=== PATIENT | female | born 1995 | race Caucasian/White ===

== ENCOUNTER 2017-10-29 14:00 | Emergency (ER) | payer MEDICAID ==
[2017-10-29 14:03] VITALS: BMI 37.8
[2017-10-29 14:07] VITALS: TEMP 97.9
--- NOTE | 2017-10-29 14:32 | ED PDOC ---
Arrival/HPI - General Chief Complaint: Lower Extremity Problem/Injury Time Seen by Provider: 10/29/17 14:28 Historian: Patient - History of Present Illness Narrative History of Present Illness (Text): 10/29/17 14:29 This 21 yo female who denies pmh, presents to this ED c/o left lateral ankle pain x 2 years. Patient ankle pain worsen last 2-3 months. Patient admits today is the worse pain. Patient denies recent travel, surgery, weakness, paresthesias, or skin rash. Time/Duration: Other (noncontributory) Quality: Aching Context: Home Past Medical History - Provider Review Nursing Documentation Reviewed: Yes - Infectious Disease Hx of Infectious Diseases: None - Musculoskeletal/Rheumatological Other/Comment: Scoliosis - Psychiatric Hx Depression: No Hx Emotional Abuse: No Hx Physical Abuse: No Hx Substance Use: No - Past Surgical History Past Surgical History: No Previous - Surgical History Hx Tonsillectomy: Yes - Anesthesia Hx Anesthesia: Yes Hx Anesthesia Reactions: No Hx Malignant Hyperthermia: No - Suicidal Assessment Feels Threatened In Home Enviroment: No Family/Social History - Physician Review Nursing Documentation Reviewed: Yes Family/Social History: Other (noncontributory) Smoking Status: Never Smoked Hx Alcohol Use: No Hx Substance Use: No Hx Substance Use Treatment: No Allergies/Home Meds Allergies/Adverse Reactions: Allergies No Known Allergies Allergy (Verified 11/28/11 05:35) Review of Systems - Review of Systems Constitutional: Normal. absent: Fatigue, Weight Change, Fevers Eyes: Normal ENT: Normal Respiratory: Normal Cardiovascular: Normal Gastrointestinal: Normal Genitourinary Female: Normal Musculoskeletal: Other (left ankle pain) Skin: Normal Neurological: Normal Endocrine: Normal Hemo/Lymphatic: Normal Psychiatric: Normal Physical Exam Vital Signs Temp Pulse Resp BP Pulse Ox 10/29/17 14:06 97.9 F 82 18 114/81 100 Temperature: Afebrile Blood Pressure: Normal Pulse: Regular Respiratory Rate: Normal Appearance: Positive for: Well-Appearing, Non-Toxic, Comfortable Pain Distress: None Mental Status: Positive for: Alert and Oriented X 3 - Systems Exam Head: Present: Atraumatic, Normocephalic Pupils: Present: PERRL Extroacular Muscles: Present: EOMI Conjunctiva: Present: Normal Mouth: Present: Moist Mucous Membranes Upper Extremity: Present: Normal Inspection, Normal ROM, Neurovascularly Intact. No: Cyanosis, Edema Lower Extremity: Present: Normal Inspection, NORMAL PULSES, Normal ROM, Tenderness (Mild tenderness over left lateral malleoulus. No posterior ankle tenderness. No calf tenderness. Rob test was negative.). No: Edema, CALF TENDERNESS, Cyanosis, Soo's Sign Neurological: Present: GCS=15, CN II-XII Intact, Speech Normal Skin: Present: Warm, Dry, Normal Color. No: Rashes Psychiatric: Present: Alert, Oriented x 3, Normal Insight, Normal Concentration Medical Decision Making - RAD Interpretation Narrative RAD Interpretations (Text): 10/29/17 15:44 PROCEDURE: Left Ankle Radiographs. HISTORY: pain COMPARISON: None FINDINGS: BONES: . No fracture. Posterior talar process prominent JOINTS: Normal. No osteoarthritis. Ankle mortise maintained. Talar dome intact SOFT TISSUES: Normal. OTHER FINDINGS: None. IMPRESSION: No fracture or lytic lesion. Talar dome intact. Prominent posterior talar process - can be associated with a hindfoot impingement syndrome. Correlate clinically Radiology Orders: 10/29/17 14:28 ANKLE LEFT 3 VIEWS ROUTINE [RAD] Stat - Medication Orders Current Medication Orders: Discontinued Medications Acetaminophen (Tylenol 325mg Tab) 650 mg PO STAT STA Stop: 10/29/17 14:29 Last Admin: 10/29/17 14:43 Dose: 650 mg MAR Pain/Vitals Document 10/29/17 14:43 SF (Rec: 10/29/17 14:44 [id number]) Pain Reassessment Is This A Pain ReAssessment? Yes Sleep Is patient sleeping during reassessment? No Presence of Pain Presence of Pain Yes Disposition/Present on Arrival - Present on Arrival Any Indicators Present on Arrival: No History of DVT/PE: No History of Uncontrolled Diabetes: No Urinary Catheter: No History of Decub. Ulcer: No History Surgical Site Infection Following: None - Disposition Have Diagnosis and Disposition been Completed?: Yes Diagnosis: Ankle pain Disposition: HOME/ ROUTINE Disposition Time: 15:46 Patient Plan: Discharge Patient Problems: Current Active Problems Problem Status Onset Ankle pain Acute Condition: GOOD Discharge Instructions (ExitCare): Ankle Sprain (DC) Additional Instructions: Call [facility] for follow up visit in 1-2 days. Take medication as instructed. Keep foot elevated, ice, rest, crutches, air cast for at least 7 days. Prescriptions: Famotidine [Pepcid] 40 mg PO DAILY #10 tablet Naproxen 500 mg PO BID PRN #14 tablet PRN Reason: Pain, Severe (8-10) Referrals: [facility] [Outside] - Follow up with primary Podiatry Clinic [Outside] - Follow up with primary Forms: [facility] ([place]), WORK NOTE
--- NOTE | 2017-10-29 15:20 | RAD ---
Date of service: 10/29/2017 PROCEDURE: Left Ankle Radiographs. HISTORY: pain COMPARISON: None FINDINGS: BONES: . No fracture. Posterior talar process prominent JOINTS: Normal. No osteoarthritis. Ankle mortise maintained. Talar dome intact SOFT TISSUES: Normal. OTHER FINDINGS: None. IMPRESSION: No fracture or lytic lesion. Talar dome intact. Prominent posterior talar process - can be associated with a hindfoot impingement syndrome. Correlate clinically
[2017-10-29 16:10] VITALS: BP 115/79; PULSE 85; RESP 19; O2SAT 98
== END 2017-10-29 16:06 | disposition home or self-care (01) ==
LOC: ED 14:00
DX: M25.572 Pain in left ankle and joints of left foot (principal)

== ENCOUNTER 2018-01-14 09:36 | Day surgery (SDC) | payer MEDICAID ==
[2017-12-26 10:57] VITALS: BMI 38.3
[2018-01-14 10:18] LABS: BASO # 0.02 K/mm3 (0.0-2.0); BASO % 0.3 % (0.0-3.0); EOS # 0.1 (0.0-0.7); EOS % 0.7 % (1.5-5.0); GRAN # 4.54 (1.4-6.5); GRAN % 62.6 % (50.0-68.0); HEMOGLOBIN 13.2 g/dL (12.0-16.0); LYMPH # 2.2 (1.2-3.4); LYMPH % 30.2 % (22.0-35.0); MEAN CELL VOLUME 89.9 fl (80.0-105.0); MEAN CORPUSCULAR HEMOGLOBIN 29.7 pg (25.0-35.0); MEAN CORPUSCULAR HGB CONC 33.1 g/dl (31.0-37.0); MEAN PLATELET VOLUME 9.3 fl (7.0-11.0); MONO # 0.5 (0.1-0.6); MONO % 6.2 % (1.0-6.0); RBC 4.44 10^6/uL (3.5-6.1); RED CELL DISTRIBUTION WIDTH 13.1 % (11.5-14.5); WHITE BLOOD COUNT 7.3 10^3/ul (4.5-11.0)
[2018-01-14 10:26] LABS: INR 1.03; PARTIAL THROMBOPLASTIN TIME 30.1 Seconds (25.1-36.5); PROTHROMBIN TIME 11.9 SECONDS (9.4-12.5)
[2018-01-14 10:27] LABS: ALB/GLOB RATIO 1.3 (1.1-1.8); ALBUMIN 4.3 g/dL (3.0-4.8); ALT/SGPT 29 U/L (7-56); AST/SGOT 25 U/L (14-36); BLOOD UREA NITROGEN 13 mg/dL (7-21); CALCIUM 9.4 mg/dL (8.4-10.5); GFR NON-AFRICAN AMERICAN > 60
[2018-01-14] MEDS ORDERED: Succinylcholine 200 mg/10 ml Inj IV ONE (12:28)
[2018-01-14] MEDS ORDERED: Rocuronium 10 mg/ml (5 ml) ONE ×2 (12:28→13:54)
[2018-01-14] MEDS ORDERED: Midazolam 2 MG/2 ML VIAL ONE (12:28)
[2018-01-14] MEDS ORDERED: Propofol 10 mg/ml Inj (20 ML) ONE (12:28)
[2018-01-14] MEDS ORDERED: Iohexol 240 (50 ml) ONE (12:29)
[2018-01-14] MEDS ORDERED: Bupivacaine 0.5% 50 ML IJ ONE (12:29)
[2018-01-14] MEDS ORDERED: Neostigmine Methylsulfate 3mg/3ml Syringe IV ONE (15:06)
[2018-01-14] MEDS ORDERED: Oxycodone/Acetaminophen 5/325 mg Tab PO PRN (15:16)
[2018-01-14] MEDS ORDERED: HYDROmorphone 0.5 mg/0.5 ml ISec IVP PRN (15:16)
[2018-01-14] MEDS ORDERED: HYDROmorphone 1 mg/ml ISec ONE (15:19)
--- NOTE | 2018-01-14 15:19 | PCM.SURG1 ---
Surgeon's Initial Post Op Note - Surgeon's Notes Surgeon: Dr. Schroeder Computed Tomography Technician: Dr. Mosley PGY3, Denzel MS4 Type of Anesthesia: General Endo Anesthesia Administered By: Dr. Calloway Pre-Operative Diagnosis: Symptomatic cholelithiasis Operative Findings: See operative dictation Post-Operative Diagnosis: Symptomatic cholelithiasis Operation Performed: Laparoscopic Cholecystectomy with IOC Specimen/Specimens Removed: Gallbladder Estimated Blood Loss: EBL {In ML}: 5 Blood Products Given: N/A Post-Op Condition: Good Date of Surgery/Procedure: 01/14/18 Time of Surgery/Procedure: 15:18
[2018-01-14] MEDS ORDERED: Lactated Ringer's 1,000 ML IV SCH (15:30)
[2018-01-14 15:37] VITALS: RESP 16
--- NOTE | 2018-01-14 15:39 | RAD ---
Date of service: 01/14/2018 PROCEDURE: Operative cholangiogram HISTORY: ? CBD OBST COMPARISON: TECHNIQUE: 31.5 sec of fluoro time. 4.04 mGy cumulative dose. Three images were submitted FINDINGS: Contrast flows into the duodenum without obstruction. There are no filling defects seen in the common duct or hepatic ducts IMPRESSION: As above
[2018-01-14 16:56] VITALS: PULSE 78; TEMP 98.3; O2SAT 96
[2018-01-14 18:53] VITALS: BP 122/68
--- NOTE | 2018-01-23 19:10 | OP ---
PROCEDURE DATE: 01/14/2018 SURGEON: Hima Schroeder MD CAREER AND TECHNOLOGY EDUCATION TEACHER: Matias Mosley DO, PGY-3. STUDY ABROAD ADVISOR: Ezekiel Calloway MD ANESTHESIA: General endotracheal - Marcaine 0.5 - 18 mL. PREOPERATIVE DIAGNOSIS: Cholecystitis - cholelithiasis. POSTOPERATIVE DIAGNOSES: Cholecystitis - cholelithiasis with morbid obesity. PROCEDURE: A laparoscopic cholecystectomy with intraoperative cholangiogram. OPERATIVE INDICATION: The patient is a 22-year-old female with symptoms of cholecystitis confirmed by ultrasound to have gallstones and advised by her private physician, Dr. Magaly Viveros for surgical intervention. Risks, benefits and the alternatives were discussed with the patient and family and the informed consent is signed. OPERATIVE NOTE: The patient is brought to the operating room from the same-day holding area. She undergoes time-out procedure and is identified by her wristband. She was then placed on the operative table in a supine manner. Following the induction of general anesthesia and sequential compression devices application on her lower extremities, she is prepped with Hibiclens chlorhexidine preparation and aseptically draped. The umbilicus was elevated on towel clips, infiltrated with the long-acting bupivacaine and incision made above the umbilicus and a Veress needle inserted into the abdominal cavity and the abdomen insufflated with carbon dioxide gas. An attempt was made to enter with a gasless technique, but the patient's significant abdominal habitus prevented the trocar from entering the peritoneal cavity. A longer 11-mm port is obtained and this satisfactorily enters the peritoneal cavity and the abdomen is explored. Under direct vision, the right subxiphoid port is inserted and two 5 mm ports now placed in the right upper quadrant at the level of the umbilicus. The patient is rotated to the left in a reverse Trendelenburg position and the gallbladder grasped with Prestige clamps. Adhesions to the gallbladder removed and the gallbladder is dissected in the barry hepatis just below the edge of the gallbladder. The cystic duct and cystic artery identified. The cystic duct is doubly hemoclipped and incised. Intraoperative cholangiography performed demonstrating free flow of contrast into the duodenum without any evidence of stone or obstruction. The catheters removed. The distal cystic duct is doubly hemoclipped and transected, likewise with the artery and the gallbladder was removed from the liver bed in a prograde fashion utilizing electrocoagulating cautery. Significant intrahepatic gallbladder placement is noted and this requires more careful dissection and hemostasis. The gallbladder was now removed in its entirety, placed in an EndoCatch and brought out through the subxiphoid port site and cultured aerobically and anaerobically and submitted to pathology in formalin. The gallbladder was opened for the culture and several extremely tiny 3 and 4 mm stones were seen and several were saved for the patient's specific request. The port is now removed. The patient was placed level supine and hemostasis is confirmed. The upper abdomen is lavaged with normal saline solution until return is completely clear. The two midline ports were closed with interrupted 2-0 Vicryl sutures and the skin closed with subcuticular Biosyn 4-0 and Dermabond adhesive. The patient is now awakened, extubated and transported to the recovery room in a satisfactory condition. Sponge, instrument and suture count were verified as correct at the end of the procedure. Estimated blood loss during this procedure was less than 20 mL of blood. This dictation will be electronically signed without being read. Thank you very much. Hima Schroeder MD
== END 2018-01-14 19:30 | disposition home or self-care (01) ==
LOC: SDS 09:36
PROVIDERS: ATTEND Surgery
DX: K80.10 Calculus of gallbladder with chronic cholecystitis without obstruction (principal); E66.01 Morbid (severe) obesity due to excess calories